=== PATIENT | female | born 1980 | race Caucasian/White ===

== ENCOUNTER 2022-11-06 00:19 | Emergency (ER) | payer OTHER, SELFPAY ==
[2022-11-06 00:23] VITALS: BP 122/90; PULSE 72; RESP 16; TEMP 37; O2SAT 97; BMI 31.3
--- NOTE | 2022-11-06 00:31 | ED_ITS ---
HPI - General Adult General Chief complaint: Allergic Reaction Stated complaint: VOMITTING diarrhea Time Seen by Provider: 11/06/22 00:28 Source: patient Mode of arrival: walk-in History of Present Illness HPI narrative: Coming to the ER after she obtained the left wrist bee sting almost 7 hours ago, the patient mentioned that after this time she felt some nausea and headache and she has been feeling her left shoulder pain as well The patient denies any previous exposure to bee stings she also denies any difficulty breathing or any rash or itching Related Data Allergies Allergy/AdvReac Type Severity Reaction Status Date / Time citalopram [From Celexa] Allergy Intermediate Verified 11/06/22 00:30 Review of Systems ROS Status of ROS 10 or more systems reviewed and unremarkable except as noted in history and below [facility] Social History Smoking status: Never smoker Exam Narrative Exam Narrative: Nurses notes and vital signs reviewed and patient is not hypoxic. General: Well-appearing and in no apparent distress. Skin: Warm, dry, no pallor noted. No rash. Head: Normocephalic, atraumatic. Neck: Supple, non-tender. Eye: Pupils are equal, round and EOMI. No scleral icterus. Ears, Nose, Mouth, and Throat: TM are clear, no nasal mucosal hypertrophy. Oral mucosa is moist, no posterior oropharynx erythema, uvula is mid-line Cardiovascular: Regular Rate and Rhythm without murmur, gallop or rub. Respiratory: No accessory muscle use or respiratory distress. Lungs are clear to auscultation, no wheezing, rales or rhonchi Chest Wall: no tenderness Back: No midline thoracic or lumbar vertebral tenderness. No CVA tenderness Musculoskeletal: normal ROM, no calf or popliteal tenderness, no lower extremity edema/swelling, on the ulnar aspect of the left wrist the patient have a less than half millimeter in area of insect bite with no surrounding redness hotness or any signs of infection there is tenderness upon palpation of the area and there is no fluctuation or swelling GI: Abdomen is soft, non-distended. Normal bowel sounds. No masses appreciated. No tenderness to palpation. No rebound, guarding, or rigidity noted. Neurological: A&O x4. No cranial nerve dysfunction observed. No truncal ataxia. Moves all extremities. Sensation intact. Psychiatric: Cooperative and interactive. Normal mood and affect. Constitutional Vital Signs, click to edit/add: Last Vital Signs Temp 98.6 F 11/06/22 00:23 Pulse 72 11/06/22 00:23 Resp 16 11/06/22 00:23 BP 122/90 11/06/22 00:23 Pulse Ox 97 11/06/22 00:23 Course Vital Signs Vital signs: Vital Signs Temperature 98.6 F 11/06/22 00:23 Pulse Rate 72 11/06/22 00:23 Respiratory Rate 16 11/06/22 00:23 Blood Pressure 122/90 11/06/22 00:23 Pulse Oximetry 97 11/06/22 00:23 Temperature 98.6 F 11/06/22 00:23 Pulse Rate 72 11/06/22 00:23 Respiratory Rate 16 11/06/22 00:23 Blood Pressure 122/90 11/06/22 00:23 Pulse Oximetry 97 11/06/22 00:23 Medical Decision Making MDM Narrative Medical decision making narrative: The patient had no wheezing and no acute finding on examination other than the insect bite area, the patient seems to be more anxious and that is the reason for his symptoms The patient right now will be treated with a steroid for the next 3 days including the right now with Benadryl and Pepcid and she also had an EKG EKG shows sinus rhythm with no ST elevation or depression with a heart rate of 74 there is low suspicion for the symptoms of the patient to be cardiac specially with her complaint of a localized insect bite that is very tender and the fact that she have the pain going up to her left shoulder The patient is to follow up with primary care physician in next 2-3 days or to return to the emergency department should any of the signs or symptoms worsen or new symptoms develop. The patient agrees with the following Diagnosis and Treatm ent plan and the patient will be discharged home. Discharge Plan Discharge Chief Complaint: Allergic Reaction Clinical Impression: Bee sting Patient Disposition: Home, Self-Care Time of Disposition Decision: 00:46 Condition: Good Stand Alone Forms: Portal Instructions Referrals: Physician,Non-Staff, MD [Primary Care Provider] - 1 week
--- NOTE | 2022-11-06 00:40 | ECG_ITS ---
The [facility] Test Date: 2022-11-06 Pat Name: Rufina Ríos Department: Room: - Gender: Female [employer]: : 1980 Requested By: [id number] Order Number: [id number] Reading MD: TONE RICO Measurements Intervals [place] Rate: 74 P: 45 IN: 142 QRS: 41 QRSD: 94 T: 44 QT: 384 QTc: 411 Interpretive Statements 1100 Sinus rhythm 2420 RSR (QR) in lead V1/V2, consistent with right ventricular conduction delay 9130 borderline ECG No previous ECG available for comparison Electronically Signed On 11-06-2022 7:10:17 EDT by TONE RICO
[2022-11-06] MEDS: FAMOTIDINE 20 MG TABLET PO (00:58)
[2022-11-06] MEDS: PREDNISONE 20 MG TABLET 40 MG PO (00:58)
[2022-11-06] MEDS: DIPHENHYDRAMINE HCL 25 MG CAPSULE PO (00:59)
== END 2022-11-06 01:05 | disposition home or self-care (01) ==
PROVIDERS: Emergency Provider Emergency Medicine; PCP Internal Medicine Gastroenterology
DX: T63.441A Toxic effect of venom of bees, accidental (unintentional), initial encounter (principal)
CPT/HCPCS: 93005; 99284

== ENCOUNTER 2023-04-17 17:51 | Emergency (ER) | payer OTHER, SELFPAY ==
[2023-04-17 18:12] VITALS: BP 145/100; PULSE 72; RESP 15; TEMP 36.8; O2SAT 98; BMI 31.5
--- NOTE | 2023-04-17 18:34 | US_ITS ---
The [address] [address] Patient Name: MURIEL DUMONT MRN: [id number] date: 1980 Sex: F Assigned Patient Location: ER Current Patient Location: ER Accession/Order Number: [id number] Exam Date: 04/17/2023 18:34 Report Date: 04/17/2023 20:17 At the request of: CORA CORNELL Procedure: US right upper quadrant Exam: Right Upper Quadrant Ultrasound Technique: Color Doppler and grayscale imaging of the right upper quadrant was performed. Comparisons: None available Findings: Pancreas: Normal where visualized. Liver: Normal echogenicity. No mass. No surface nodularity. Portal venous flow is antegrade. Right hepatic lobe measures 14.7 cm length. Gallbladder/biliary: The gallbladder is partially collapsed. Multiple echogenic stones are seen within the lumen. Negative sonographic De La Torre's. The common bile duct measures 2.5 mm in diameter. The gallbladder wall thickness is 2.0 mm. Right Kidney: The right kidney measures 10.4 x 4.6 x 4.0 cm. Aorta/IVC: Normal. No evidence for free abdominal fluid. US/US right upper quadrant Impression: Cholelithiasis without evidence of acute cholecystitis. Electronically authenticated by: CINDY JEAN Date: 04/17/2023 20:17
[2023-04-17] MEDS: 0.9 % SODIUM CHLORIDE 1,000 ML 999 ML IV (18:53)
[2023-04-17] MEDS: KETOROLAC TROMETHAMINE 30 MG/ML VIAL IVP (18:54)
[2023-04-17] MEDS: ONDANSETRON PF 4 MG/2 ML VIAL IV (18:55)
[2023-04-17 19:04] LABS: Basophils Absolute Auto 0.1 10^3/uL (0.0-0.1); Basophils Percent Auto 0.7 % (0.2-2.0); Eosinophils Absolute Auto 0.2 10^3/uL (0.0-0.7); Eosinophils Percent Auto 2.3 % (0.9-7.0); Hematocrit 38.6 % (36.0-48.0); Hemoglobin 13.7 g/dL (12.0-16.0); Immature Granulocytes Abs Auto 0.01 10^3/uL (0.00-0.03); Immature Granulocytes Pct Auto 0.1 % (0.0-0.5); Lymphocytes Absolute Auto 2.9 10^3/uL (1.2-3.8); Lymphocytes Percent Auto 41.9 % (20.5-60.0); Mean Corpuscular HGB Conc 35.5 g/dL (29.9-35.2); Mean Corpuscular Hemoglobin 33.1 pg (26.7-34.0); Mean Corpuscular Volume 93.2 fL (81.0-99.0); Monocytes Absolute Auto 0.6 10^3/uL (0.3-0.8); Monocytes Percent Auto 7.8 % (1.7-12.0); Neutrophils Absolute Auto 3.3 10^3/uL (1.4-6.5); Neutrophils Percent Auto 47.2 % (43.0-75.0); Platelet Count 287 10^3/uL (150-450); Red Blood Count 4.14 10^6/uL (4.20-5.40); Red Cell Distribution Width 11.9 % (11.0-15.0)
[2023-04-17 19:21] LABS: Alanine Aminotransferase 20 U/L (14-59); Albumin Globulin Ratio 1.1; Albumin Level 3.8 g/dL (3.4-5.0); Alkaline Phosphatase 56 U/L (46-116); Anion Gap 10.2; Aspartate Amino Transferase 14 U/L (15-37); Bilirubin Total 0.6 mg/dL (0.2-1.0); Carbon Dioxide 26.4 mmol/L (21.0-32.0); Chloride 106 mmol/L (98-107); Estimated GFR (African America >60 (>=60); Estimated GFR (Non-African Ame >60 (>=60); Globulin 3.6 g/dL; Glucose 91 mg/dL (74-106); Potassium 3.6 mmol/L (3.5-5.1); Sodium 139 mmol/L (136-145); Total Protein 7.4 g/dL (6.4-8.2)
--- NOTE | 2023-04-17 19:22 | XR_ITS ---
The [address] [address] Patient Name: MURIEL DUMONT MRN: [id number] date: 1980 Sex: F Assigned Patient Location: ER Current Patient Location: ER Accession/Order Number: [id number] Exam Date: 04/17/2023 19:45 Report Date: 04/17/2023 20:29 At the request of: CORA CORNELL Procedure: XR ribs RT min 3V w CXR1V EXAM: XR ribs RT min 3V w CXR1V HISTORY: pain COMPARISON: Chest x-ray 06/08/2019 TECHNIQUE: 4 views right ribs. FINDINGS: No pneumothorax, pleural effusion or consolidation. Normal heart size. No displaced rib fractures. XR/XR ribs RT min 3V w CXR1V IMPRESSION: No displaced rib fractures. No acute cardiopulmonary process. Electronically authenticated by: CINDY JEAN Date: 04/17/2023 20:29
[2023-04-17] MEDS: MORPHINE SULFATE 2 MG/ML SYRINGE IV (19:44)
[2023-04-17 19:56] LABS: Bilirubin Urine NEGATIVE (NEGATIVE); Blood Urine NEGATIVE (NEGATIVE); Clarity Urine CLEAR (CLEAR); Color Urine LT. YELLOW (YELLOW); Glucose Urine UA NEGATIVE (NEGATIVE); Ketones Urine NEGATIVE (NEGATIVE); Leukocyte Esterase Urine NEGATIVE (NEGATIVE); Nitrite Urine NEGATIVE (NEGATIVE); Protein Urine NEGATIVE (NEG/TRACE); Urobilinogen Urine 0.2 EU/dL (0.2-1.0)
[2023-04-17 19:57] LABS: Urine Microscopic Indicated NO
--- NOTE | 2023-04-17 20:14 | ED_ITS ---
HPI - Abdominal Pain General Chief Complaint: Abdominal Pain Stated Complaint: Abdominal Pain Time Seen by Provider: 04/17/23 18:04 Source: patient Mode of arrival: walk-in Limitations: no limitations History of Present Illness HPI narrative: 43-year-old female presents her chief complaint right upper quadrant abdominal pain. Patient was seen and diagnosed yesterday with shingles and placed on Valtrex. She has a papular like painful rash to the posterior part of her neck. It is not midline. It is diffuse. Patient states earlier today she developed right upper quadrant pain with nausea. She has pain to palpation or quadrant. She denies any fevers or chills. Denies any injury or trauma. States it feels like someone is stabbing her in the side. Patient is not hypoxic she is afebrile. Related Data Home Medications Medication Instructions Recorded Confirmed acyclovir 800 mg tablet 800 mg PO .5 times daily 04/17/23 04/17/23 naltrexone 50 mg tablet 75 mg PO DAILY 04/17/23 04/17/23 quetiapine 100 mg tablet (Seroquel) 100 mg PO DAILY 04/17/23 04/17/23 semaglutide 1 mg/dose (4 mg/3 mL) 1.8 mg subcut QWEEK 04/17/23 04/17/23 subcutaneous pen injector Previous Rx's Medication Instructions Recorded ondansetron 4 mg disintegrating 4 mg PO DAILY PRN nausea and 04/17/23 tablet vomiting 3 days #10 tabs Allergies Allergy/AdvReac Type Severity Reaction Status Date / Time citalopram [From Celexa] Allergy Intermediate Verified 04/17/23 18:06 Review of Systems ROS Narrative All Systems are negative except as noted/marked. PFSH PFSH Social History Smoking status: Never smoker Exam Narrative Exam Narrative: Nurses note and vital signs reviewed and patient is not hypoxic. General: The patient appears well and in no apparent distress. Patient is resting comfortably on cart. Skin: Warm, dry, no pallor noted. Red, painful rash to back of the neck, papular Head: Normocephalic, atraumatic Eye: Normal conjunctiva, no drainage, EOMI. PERRL Ears, Nose, Mouth, and Throat: oral mucosa is moist. Nares patent. Mouth without vesicles. Ear canals patent. Tm's without Erythema Cardiovascular: Regular Rate and Rhythm Respiratory: Patient is in no distress, no accessory muscle use, lungs are clear to auscultation, no wheezing, rales or rhonchi Back: non-tender, no CVA tenderness bilaterally to percussion. GI: right upper quadrant tenderness to palpation Normal bowel sounds, no masses appreciated. No rebound, guarding, or rigidity noted. Musculoskeletal: The patient has no evidence of calf tenderness, no pitting alejandro ma, symmetrical pulses noted bilaterally Neurological: A&O x4, normal speech Psychiatric: Cooperative Constitutional Vital Signs, click to edit/add: Last Vital Signs Temp 98.3 F 04/17/23 18:12 Pulse 85 04/17/23 20:34 Resp 16 04/17/23 20:34 BP 130/85 04/17/23 20:34 Pulse Ox 99 04/17/23 20:34 O2 Del Method Room Air 04/17/23 20:34 Course Vital Signs Vital signs: Vital Signs Temperature 98.3 F 04/17/23 18:12 Pulse Rate 72 04/17/23 18:12 Respiratory Rate 15 04/17/23 18:12 Blood Pressure 145/100 H 04/17/23 18:12 Pulse Oximetry 98 04/17/23 18:12 Oxygen Delivery Method Room Air 04/17/23 18:12 Temperature 98.3 F 04/17/23 18:12 Pulse Rate 85 04/17/23 20:34 Respiratory Rate 16 04/17/23 20:34 Blood Pressure 130/85 04/17/23 20:34 Pulse Oximetry 99 04/17/23 20:34 Oxygen Delivery Method Room Air 04/17/23 20:34 MDM - Abdominal Pain MDM Narrative Medical decision making narrative: 43 year old female presenting here with chief complaint right upper quadrant abdominal pain. She states she stated she felt she had pain that was stabbing in her right side. Patient had a no known diagnosis of gallbladder issues or cholecystitis. Patient does take ozempic and concrave for weight loss. She was seen yesterday at another facility and diagnosed with shingles of her neck. Rash is more macular papular and painful. Appears to be more dermatitis associated and not shingles Upon arrival here to the emergency room CBC, cmp, and ultrasound were ordered. Ultrasound reading Cholelithiasis, no cholecystitis. CBC and CMP are all within normal limits urinalysis also negative. Patient was medicated here with Zofran and Phenergan for nausea Toradol and morphine for pain. Her symptoms have improved. I explained results to patient she agrees with plan of care. Patient has a fo llow-up appointment with her primary care physician this next week. She'll be given a referral to a general surgeon For gallbladder follow-up. Patient agrees with plan of care. Patient stable discharged home. Differential Diagnosis Differential diagnosis: Likely abdominal pain, gastroenteritis and other (Cholecystitis) Medical Records Attestation: I reviewed the patient's medical records. Lab Data Attestation: I reviewed the patient's lab results. Labs: Lab Results 04/17/23 04/17/23 Range/Units 18:50 19:45 WBC 7.0 (4.0-11.0) 10^3/uL RBC 4.14 L (4.20-5.40) 10^6/uL Hgb 13.7 (12.0-16.0) g/dL Hct 38.6 (36.0-48.0) % MCV 93.2 (81.0-99.0) fL MCH 33.1 (26.7-34.0) pg MCHC 35.5 H (29.9-35.2) g/dL RDW 11.9 (11.0-15.0) % Plt Count 287 (150-450) 10^3/uL MPV 10.0 (9.5-13.5) fL Neut % (Auto) 47.2 (43.0-75.0) % Lymph % (Auto) 41.9 (20.5-60.0) % Baker % (Auto) 7.8 (1.7-12.0) % Eos % (Auto) 2.3 (0.9-7.0) % Baso % (Auto) 0.7 (0.2-2.0) % Neut # (Auto) 3.3 (1.4-6.5) 10^3/uL Lymph # (Auto) 2.9 (1.2-3.8) 10^3/uL Baker # (Auto) 0.6 (0.3-0.8) 10^3/uL Eos # (Auto) 0.2 (0.0-0.7) 10^3/uL Baso # (Auto) 0.1 (0.0-0.1) 10^3/uL Abs Immat Gran (auto) 0.01 (0.00-0.03) 10^3/uL Imm/Tot Granulo (auto) 0.1 (0.0-0.5) % Sodium 139 (136-145) mmol/L Potassium 3.6 (3.5-5.1) mmol/L Chloride 106 (98-107) mmol/L Carbon Dioxide 26.4 (21.0-32.0) mmol/L Anion Gap 10.2 BUN 13.0 (7.0-18.0) mg/dL Creatinine 0.93 (0.55-1.02) mg/dL Est GFR ( Amer) >60 (>=60) Est GFR (Non-Af Amer) >60 (>=60) BUN/Creatinine Ratio 14.0 Glucose 91 (74-106) mg/dL Calcium 9.0 (8.5-10.1) mg/dL Total Bilirubin 0.6 (0.2-1.0) mg/dL AST 14 L (15-37) U/L ALT 20 (14-59) U/L Alkaline Phosphatase 56 (46-116) U/L Total Protein 7.4 (6.4-8.2) g/dL Albumin 3.8 (3.4-5.0) g/dL Globulin 3.6 g/dL Albumin/Globulin Ratio 1.1 Urine Color Lt. yellow (YELLOW) Urine Clarity Clear (CLEAR) Urine pH 7.0 (5.0-9.0) Ur Specific [place] 1.010 (1.005-1.025) Urine Protein Negative (NEG/TRACE) mg/dL Urine Glucose (UA) Negative (NEGATIVE) mg/dL Urine Ketones Negative (NEGATIVE) mg/dL Urine Occult Blood Negative (NEGATIVE) Urine Nitrite Negative (NEGATIVE) Urine Bilirubin Negative (NEGATIVE) Urine Urobilinogen 0.2 (0.2-1.0) EU/dL Ur Leukocyte Esterase Negative (NEGATIVE) Imaging Data US - abdomen: Attestation: I have reviewed the pertinent imaging results. Radiologist's impression: ITS Impressions Upper Quadrant Ultrasound 04/17/23 18:34 Impression: Cholelithiasis without evidence of acute cholecystitis. Electronically authenticated by: CINDY JEAN Date: 04/17/2023 20:17 Ribs X-Ray 04/17/23 19:22 IMPRESSION: No displaced rib fractures. No acute cardiopulmonary process. Electronically authenticated by: CINDY JEAN Date: 04/17/2023 20:29 Chest x-ray: Radiologist's impression: ITS Impressions Upper Quadrant Ultrasound 04/17/23 18:34 Impression: Cholelithiasis without evidence of acute cholecystitis. Electronically authenticated by: CINDY JEAN Date: 04/17/2023 20:17 Ribs X-Ray 04/17/23 19:22 IMPRESSION: No displaced rib fractures. No acute cardiopulmonary process. Electronically authenticated by: CINDY JEAN Date: 04/17/2023 20:29 Discharge Plan Discharge Chief Complaint: Abdominal Pain Clinical Impression: Cholelithiasis, Dermatitis Patient Disposition: Home, Self-Care Time of Disposition Decision: 20:39 Condition: Good Prescriptions / Home Meds: New ondansetron 4 mg tablet,disintegrating 4 mg PO DAILY PRN (Reason: nausea and vomiting) 3 Days Qty: 10 0RF No Action quetiapine [Seroquel] 100 mg tablet 100 mg PO DAILY naltrexone 50 mg tablet 75 mg PO DAILY semaglutide 1 mg/dose (4 mg/3 mL) pen injector 1.8 mg subcut QWEEK acyclovir 800 mg tablet 800 mg PO .5 times daily Instructions: Gallstones (ED), Dermatitis (ED) Stand Alone Forms: Portal Instructions Referrals: Willis Gomez DO [Physician] - 1 week MIRTHA ARCE [Primary Care Provider] - 1 week
[2023-04-17] MEDS: PROMETHAZINE HCL 25 MG/ML VIAL 12.5 MG IV (20:15)
[2023-04-17 20:34] VITALS: BP 130/85; PULSE 85; RESP 16; O2SAT 99
[2023-04-17] MEDS: DEXAMETHASONE SOD PHOS 10 MG/ML VIAL IV (20:46)
[2023-04-17 20:50] VITALS: BP 130/85; PULSE 80; RESP 16; O2SAT 99
== END 2023-04-17 21:00 | disposition home or self-care (01) ==
PROVIDERS: Physician Assistant; Emergency Provider Emergency Medicine; PCP Internal Medicine Gastroenterology
DX: K80.20 Calculus of gallbladder without cholecystitis without obstruction (principal); L30.9 Dermatitis, unspecified; Z79.899 Other long term (current) drug therapy
CPT/HCPCS: 36415; 71101; 76705; 80053; 81003; 85025; 96374; 96375; 99285; J1100; J1885; J2250; J2270; J2405